=== PATIENT | female | born 1985 | race Caucasian/White ===

== ENCOUNTER 2019-02-26 17:34 | Inpatient (IN) ==
[2019-02-26 16:25] LABS: Amphetamine Screen,Urine Negative ng/mL (Cutoff=1000); Barbiturate Screen,Urine Negative ng/mL (Cutoff=200); Benzodiazepines Screen,Urine Negative ng/mL (Cutoff=200); Cannabinoid Screen,Urine Negative ng/mL (Cutoff = 50); Cocaine Screen,Urine Negative ng/mL (Cutoff= 300); Opiate Screen,Urine Negative ng/mL (Cutoff=300); Phencyclidine Screen,Urine Negative ng/mL (Cutoff=25)
--- NOTE | 2019-02-26 16:52 | OB/GYN History & Physical ---
Date of Encounter: 02/26/19 Time of Encounter: 16:43 Assessment and Plan (1) 38 weeks gestation of Current visit: Yes Status: Acute Admit for repeat Dr Duran to assume care for (2) Oligohydramnios antepartum Current visit: Yes Status: Acute Admit for repeat Qualifiers: Fetus number: single or unspecified fetus Qualified Code(s): O41.00X0 - Oligohydramnios, unspecified trimester, not applicable or unspecified (3) Positive urine drug screen Current visit: Yes Status: Acute UDS positive for marijuana at the beginning of UDS positive for buprenorphine today; PUBLIC OPINION SURVEY TAKER called to discuss with patient History of Present Illness Chief complaint: Decreased movement HPI: Ms. Yoon is a 34 year old at 38 weeks and 0 days that presents to triage with c/o decreased movement x 24 hours. She states baby is moving, but not as active as normal. She states she also feels wet, but is not soaking through her underwear. She had an ultrasound on 02/24/19 which showed an JAYDE of 4.85cm. Patient states she last ate at 1130 this morning. She denies any headaches, vision changes, epigastric pain, and leaking of fluid. This has been complicated by obesity and GDM controlled with metformin. She has been seen by Elida Cee CNM and Dr Ma for her care. Labs: GBS Neg HIV nonreactive Hep B nonreactive T Pal Negative Varicella Positive Rubella Positive Blood type A+ First trimester urine drug screen - marijuana Past Med Surg Social Fam HX - Past Medical History Medical history: no medical history Additional medical history: D&C-2 Psychiatric history: no psych history - Past Surgical History Surgical History: appendectomy, , cholecystectomy Additional surgical history: Molar . Cholecystectomy 2010 - Social History Smoking Status: Current every day smoker Packs per day: 1/2 Smokeless Tobacco Status: No Alcohol use: none Drug use: marijuana - Family History Mother Living Status: Still Living Hx Family Cardiac Disorders: Yes (has PVC's) Hx Family Endocrine Disorder: Yes (Type DM Type 2) Obstetrical History - Pregnancies : 4 Para: 1 Term: 1 : 0 Ab's: 2 Livin Medications and Allergies Ondansetron ODT [Zofran ODT] 4 mg SL Q6HR 02/26/19 [History] metFORMIN 1,000 mg PO DAILY 02/26/19 [History] Allergy/AdvReac Type Severity Reaction Status Date / Time No Known Allergies Allergy Verified 08/16/18 10:45 Review of System OB All systems PM: reviewed and no additional remarkable complaints except as stated Exam - Constitutional Constitutional: well developed, well nourished, no acute distress, obese - HEENT HEENT: Normocephaly, Mucus Membranes Moist - Neck Neck exam: full ROM - Lungs Respiratory exam: CTAB - Cardiovascular Cardiovascular exam: RRR, +S1, +S2 - Abdomen Abdomen: Present: bowel sounds normal, gravid, non tender - Extremities Extremities exam: normal capillary refill, normal inspection, radial pulses palpable and symmetrical Deep Tendon Reflex Grade: 2+ Normal - Uterus Uterus exam: Present: normal size - Adnexa Adnexa: bilateral: normal Results Abnormal lab results Ur Buprenorphine Scrn Positive ng/mL (Cutoff=5) H 02/26/19 15:55 All other labs normal. - VTE Reasons for not Prescribing Prophylaxis: Treatment not Indicated - Low risk for VTE
--- NOTE | 2019-02-26 17:17 | Event Note ---
Date of Encounter: 02/26/19 Time of Encounter: 17:15 After EVELINE saw patient, she would like to repeat the drug screen. Dr Duran approves if straight cath collected. Offered to patient and reordered. Patient understands that despite what urine comes back, the cord will be tested based upon her history of marijuana abuse.
[~2019-02-26 17:34] MED LIST: CeFAZolin Premix DUPLEX 2,000 MG/50 ML BAG IVPB ONE; Famotidine 20 MG/2 ML VIAL IVP ONE; Metoclopramide 10 MG/2 ML VIAL IVP ONE; Oxytocin 20 units/ LR 1000 mL 20 UNIT/1,000 ML BAG IVC ONE; Oxytocin 20 units/ LR 1000 mL 20 UNIT/1,000 ML BAG IVC SCH; Ringers Solution, Lactated 1,000 ML IVC SCH
[2019-02-26 18:11] LABS: Basophils % 0.2 %; Eosinophils # 0.1 K/mcL (0.0-0.6); Eosinophils % 0.8 %; Hematocrit 35.7 % (35.3-44.9); Hemoglobin 11.5 g/dL (11.5-15.4); Immature Granulocytes % 0.5 % (0-4); Lymphocytes # 2.9 K/mcL (0.6-4.6); Lymphocytes % 22.1 %; Mean Corpuscular HGB Conc 32.2 g/dL (31.6-35.5); Mean Corpuscular Hemoglobin 28.8 pg (28.0-33.3); Mean Corpuscular Volume 89.3 fL (83.0-100.0); Monocytes # 0.7 K/mcL (0.0-1.3); Monocytes % 5.3 %; Neutrophils # 9.2 K/mcL (1.6-8.9); Platelet Count 346 K/mcL (140-400); Red Cell Distribution Width 14.2 % (11.5-14.5); Segmented Neutrophils % 71.1 %; White Blood Count 12.9 K/mcL (4.3-11.1)
--- NOTE | 2019-02-26 18:25 | Anesthesia Evaluation PreOp ---
Date of Encounter: 02/26/19 Time of Encounter: 18:03 - Past History Planned Operation: 38wks repeat , oligohydraminos, dec Cardiac History: Denies any Significant Hx Pulmonary History: Smoker Other Medical History: Other (oligohydraminos, decreased movement, positive urine drug screen for buprenorphine & Marijuana, [place] BMI=44) Anesthesia History: No Prior Anesthetic Complications, Past Anesthesia Alcohol Use: none Drug use: marijuana Medications and Allergies Ondansetron ODT [Zofran ODT] 4 mg SL Q6HR 02/26/19 [History] metFORMIN 1,000 mg PO DAILY 02/26/19 [History] Allergy/AdvReac Type Severity Reaction Status Date / Time No Known Allergies Allergy Verified 08/16/18 10:45 Anesthesia Results - Labs 02/26/19 17:57 Anesthesia Exam - HEENT Pupil (Motor): Pupils equal Mallampati: II Teeth: Normal Oral Opening: Greater than 3 - EXECUTIVE CYBER LEADER LOC: Oriented EXECUTIVE CYBER LEADER Motor: Normal RUE, Normal LUE, Normal RLE, Normal LLE, Normal Face EXECUTIVE CYBER LEADER Sensory: Normal: RUE, LUE, RLE, LLE, Face - Cardiac Rhythm: Regular Murmur: None - Pulmonary Breath Sounds: bilateral Clear Respiratory Effort: Symmetrical Anesthesia Assess/Plan ASA Score: 3 Level of consciousness: Cooperative, Oriented Anesthetic Plan: General, Spinal, Epidural Monitoring Plan: Standard Monitors Recovery Plan: PACU
[2019-02-26] MEDS ORDERED: *HR* Phenylephrine 10 MG/ML VIAL ONE (18:33)
[2019-02-26] MEDS ORDERED: *HR* Morphine Sulfate/PF 10 MG/10 ML AMPUL ONE (18:33)
[2019-02-26] MEDS ORDERED: EPHEDrine 50 MG/ML VIAL ONE (18:33)
[2019-02-26] MEDS ORDERED: *HR* FentaNYL (PF) 100 MCG/2 ML VIAL ONE (18:34)
[2019-02-26] MEDS ORDERED: Bupivacaine/PF 0.75% in Dex 2 ML AMPUL INFILT ONE (18:36)
[2019-02-26] MEDS ORDERED: Ringers Solution, Lactated 1,000 ML ONE (18:41)
[2019-02-26] MEDS ORDERED: *HR* Succinylcholine 200 MG/10 ML VIAL IVP ONE (19:57)
[2019-02-26] MEDS ORDERED: Propofol 500 MG/50 ML INFUS..BTL ONE (19:57)
[2019-02-26] MEDS ORDERED: Ondansetron 4 MG/2 ML VIAL ONE (22:46)
[2019-02-26] MEDS ORDERED: Ketorolac 30 MG/ML VIAL ONE (22:46)
[2019-02-26] MEDS ORDERED: Dexamethasone 4 MG/ML VIAL ONE (22:46)
--- NOTE | 2019-02-26 23:14 | Anesthesia Procedures ---
Date of Encounter: 02/26/19 Time of Encounter: 22:30 Procedures: Anesthesia - Epidural/Spinal Patient ID/Chart reviewed: Yes Patient examined: Yes OB Eval: Gestational age: 38 OB Eval: : 2 OB Eval: Hx Para: 1 OB Eval: Dilated at (cm): 4 OB Eval: Contractions: Non-stressed pattern Consent Obtained: Yes Site Prep: Aseptic Technique, Sterile prep and drape, Povidone-Iodine 1% Patient position: upright Amount of Local Anesthetic used: 3 Blood: No CSF: No Paresthesia: Yes Procedure: tolerated procedure well L4-5 1st attempt. bupivicaine 0.75% 1.8ml duramorph 0.3mg fentanyl 10ug
--- NOTE | 2019-02-26 23:17 | OB/GYN Procedure Note ---
Section - Date of procedure: 02/26/19 Preop diagnosis: desires repeat , other (oligohydramnios with decreased movement) Post-op diagnosis: same Procedure: repeat low transverse Surgeon: Kal Phillip Blood Loss: 500 Was there an surgical assistant present: Yes Explosive Expert: Kaya Cm Anesthesiologist: Neto Jones Adhesive Bandage Machine Operator: Ximena Locke Anesthesia Type: Spinal section complications: none Disposition: L&D Recovery Room Specimens: Placenta - (s) Infant A Delivery Date: 02/26/19 Delivery Time: 22:46 Presentation: vertex Position: OA Route of delivery: other Gender: Male Viability: Viable Pounds: 7 Ounces: 15 Gram Weight: 3.605 kg at 1 minute: 9 at 5 minutes: 9 Placenta: partial extraction Cord: 3 umbilical vessels - Narrative Narrative: Patient was taken to the operating room with IV in place. She presented complaining of significantly decreased movement. Patient was known to have an JAYDE of 4.9 cm. Because of this patient was On the monitor and we decided to proceed with a repeat section. Informed consent was obtained. This patient does wish to proceed. Procedure she was taken to the operating room with IV in place. She was then given spinal anesthesia. She was then prepped and draped in the usual sterile fashion. Once adequate analgesia was achieved a Pfannenstiel incision was made. It was carried sharply through the subtenons fatty tissue, until the fascial layers reached. The fascia was then nicked in the midline. It was then dissected bilaterally with scissors. It was dissected vertically without difficulty. Rectus abdominis musculature is and in the midline and the peritoneum was sharply entered. A bladder blade was placed at the inferior margin of the incision. The bladder flap was then developed difficulty. The bladder blade was placed over the bladder flap, and a low transverse incision was then made in the lower uterine segment. Fluid was noted be clear and sparse. Th 's head was then delivered without difficulty. The rest the infant was then delivered easily. cried immediately upon delivery. The cord was clamped cut. The was in passed to nursing in attendance. The placenta without any difficulty. Uterine lavage was performed. The incision was then closed with 0 Vicryl suture in a running locking fashion. The pelvic cavity was rinsed thoroughly with sterile water 2. The fascia was then closed with 0 Vicryl suture in a running nonlocking fashion. Suprafascial region was rinsed thoroughly with sterile water 2 all bleeders cauterized. The skin was then closed with allan. A beto dressing was placed. Estimated blood loss 500 mL. Patient delivered a male infant weight 7 lbs. 15 oz. with Apgars of 9 at 1 minute and 9 at 5 minutes.
[2019-02-27] MEDS ORDERED: Sennosides 8.6 MG TABLET PO PRN (02:16)
[2019-02-27] MEDS ORDERED: *HR* OxyCODONE/APAP 5/325 TABLET PO PRN (02:16)
[2019-02-27] MEDS ORDERED: Metoclopramide 10 MG/2 ML VIAL IVP PRN (02:16)
[2019-02-27] MEDS ORDERED: Ondansetron 4 MG/2 ML VIAL IVP PRN (02:16)
[2019-02-27] MEDS ORDERED: Simethicone 80 MG TAB.CHEW PO PRN (02:16)
[2019-02-27] MEDS ORDERED: Oxytocin 20 units/ LR 1000 mL 20 UNIT/1,000 ML BAG IVC SCH (02:16)
[2019-02-27] MEDS: ceFAZolin 2,000 MG in 0.9 % Sodium Chloride 100 ML IVP SCH ×3 (03:23→16:36)
[2019-02-27 06:17] LABS: Basophils % 0.2 %; Eosinophils % 0.1 %; Hematocrit 30.7 % (35.3-44.9); Immature Granulocytes % 0.5 % (0-4); Lymphocytes # 1.9 K/mcL (0.6-4.6); Lymphocytes % 10.6 %; Mean Corpuscular HGB Conc 31.9 g/dL (31.6-35.5); Mean Corpuscular Hemoglobin 28.6 pg (28.0-33.3); Mean Corpuscular Volume 89.5 fL (83.0-100.0); Mean Platelet Volume 10.2 fL (9.4-12.4); Monocytes # 0.4 K/mcL (0.0-1.3); Monocytes % 2.4 %; Neutrophils # 15.3 K/mcL (1.6-8.9); Platelet Count 314 K/mcL (140-400); Red Blood Count 3.43 M/mcL (3.82-4.97); Red Cell Distribution Width 14.1 % (11.5-14.5); Segmented Neutrophils % 86.2 %; White Blood Count 17.7 K/mcL (4.3-11.1)
[2019-02-27] MEDS: Ibuprofen 600 MG TABLET PO PRN ×3 (06:23→19:00)
[2019-02-27 06:25] LABS: Hemoglobin 9.8 g/dL (11.5-15.4)
--- NOTE | 2019-02-27 06:55 | Anesthesia Evaluation Post Op ---
Date of Encounter: 02/27/19 Time of Encounter: 02:00 - Lungs Lungs: Clear Ascult./Percussion - Airway Airway: Non-obstructed - Cardiovascular Regular Rate - Mental Status Mental Status: Alert & Oriented, Answers Appropriately - Pain Pain Scale: 0 - Nausea Vomiting Nausea Vomiting: Not Present - Hydration Hydration: NPO, Valle catheter - Discharge PostOp Status: Transfer Patient to floor
[2019-02-27] MEDS: Prenatal Vit/FA 1 EACH TABLET PO SCH (08:34)
--- NOTE | 2019-02-27 13:15 | OB/GYN Progress Note ---
Date of Encounter: 02/27/19 Time of Encounter: 13:13 - Assessment and Plan (1) Status post repeat low transverse section Current Visit: Yes Status: Acute Continue routine postop/ care anticipate discharge home (2) Breast feeding status of mother Current Visit: Yes Status: Acute support prn Subjective - Subjective Principal diagnosis: Postop/ day 1 Interval history: Patient is post op day 1 repeat c/s for Olig[place]. Patient denies any pain at this time. Patient reports normal lochia. Patient states is breast feeding well. Patient reports: appetite normal, voiding normally, pain well controlled, ambulating normally [place]: doing well, nursing well Objective - Vital Signs Latest vital signs: Vital Signs Temp Pulse Resp BP Pulse Ox 02/27/19 09:00 98.1 F 70 16 104/67 96 02/27/19 08:25 16 02/27/19 05:40 98.4 F 83 16 111/70 96 02/27/19 04:30 98.4 F 80 14 108/69 96 02/27/19 03:15 97.8 F 73 16 111/62 96 02/27/19 02:30 98.3 F 78 16 113/78 96 02/27/19 01:45 98.3 F 68 16 108/70 96 Intake and Output 02/26/19 02/27/19 02/27/19 23:59 07:59 15:59 Intake Total 100 / 200 100 / 200 Output Total 160 / 160 Balance -60 / 40 100 / 40 Intake: IV Fluids 100 / 200 100 / 200 Ancef 2,000 MG In 0.9 % Sodium 100 / 200 100 / 200 Chloride 100 ML @ 200 mls/hr IVP Q8HR [facility] Rx#:[id number] Output: Catheter 160 / 160 - Exam Lungs: bilateral: normal Chest: Normal S1, Normal S2 Extremities: Present: normal Abdomen: Present: normal appearance, soft Incision: Present: normal, dry, intact, dressed (TERI) Uterus: Present: normal, firm Fundal Height: 2 (U/2) - Labs Labs: Laboratory Results - last 24 hr 02/26/19 02/26/19 02/27/19 15:55 17:57 05:35 WBC 12.9 H 17.7 H RBC 4.00 3.43 L Hgb 11.5 9.8 L D Hct 35.7 30.7 L MCV 89.3 89.5 MCH 28.8 28.6 MCHC 32.2 31.9 RDW 14.2 14.1 Plt Count 346 314 MPV 10.0 10.2 Immature Gran % 0.5 0.5 Seg Neutrophils % 71.1 86.2 Lymphocytes % 22.1 10.6 Monocytes % 5.3 2.4 Eosinophils % 0.8 0.1 Basophils % 0.2 0.2 Neutrophils # 9.2 H 15.3 H Lymphocytes # 2.9 1.9 Monocytes # 0.7 0.4 Eosinophils # 0.1 0.0 Basophils # 0.0 0.0 Urine Opiates Screen Negative Ur Buprenorphine Scrn Positive H Ur Barbiturates Screen Negative Ur Phencyclidine Scrn Negative Ur Amphetamines Screen Negative U Benzodiazepines Scrn Negative Urine Cocaine Screen Negative U Marijuana (THC) Screen Negative Ur Drug Screen Interp See Below
[2019-02-28] MEDS: Ibuprofen 600 MG TABLET PO PRN (03:15)
[2019-02-28] MEDS: Prenatal Vit/FA 1 EACH TABLET PO SCH (07:51)
[2019-02-28 08:22] VITALS: BP 125/79
[2019-02-28] MEDS ORDERED: Ondansetron ODT 4 MG TAB.RAPDIS SL STA (09:23)
--- NOTE | 2019-02-28 11:25 | Discharge Summary ---
Date of Encounter: 02/28/19 Time of Encounter: 11:22 - Discharge Diagnosis (1) Breast feeding status of mother Priority: Secondary Status: Acute (2) Status post repeat low transverse section Priority: Primary Status: Acute Comments: Stable, meeting all PP milestones, pain well managed, breast feeding and pumping, desires discharge. - Discharge Medications Prescriptions: New Ferrous Sulfate 325 mg PO DAILY #60 tablet Ibuprofen [Motrin] 600 mg PO Q6HR PRN #60 tablet PRN Reason: Cramping Simethicone [Gas-X] 80 mg PO TID PRN tab.chew PRN Reason: Dyspepsia Discontinued Ondansetron ODT [Zofran ODT] 4 mg SL Q6HR metFORMIN 1,000 mg PO DAILY Home Medications: Ferrous Sulfate 325 mg PO DAILY #60 tablet 02/28/19 [Rx] Ibuprofen [Motrin] 600 mg PO Q6HR PRN #60 tablet 02/28/19 [Rx] Simethicone [Gas-X] 80 mg PO TID PRN tab.chew 02/28/19 [Rx] Allergies/Adverse Reactions: Allergy/AdvReac Type Severity Reaction Status Date / Time No Known Allergies Allergy Verified 08/16/18 10:45 Data Procedures and tests throughout hospitalization: Laboratory Tests 02/26/19 02/26/19 02/27/19 15:55 17:57 05:35 WBC 12.9 H 17.7 H RBC 4.00 3.43 L Hgb 11.5 9.8 L D Hct 35.7 30.7 L MCV 89.3 89.5 MCH 28.8 28.6 MCHC 32.2 31.9 RDW 14.2 14.1 Plt Count 346 314 MPV 10.0 10.2 Immature Gran % 0.5 0.5 Seg Neutrophils % 71.1 86.2 Lymphocytes % 22.1 10.6 Monocytes % 5.3 2.4 Eosinophils % 0.8 0.1 Basophils % 0.2 0.2 Neutrophils # 9.2 H 15.3 H Lymphocytes # 2.9 1.9 Monocytes # 0.7 0.4 Eosinophils # 0.1 0.0 Basophils # 0.0 0.0 Urine Opiates Screen Negative Ur Buprenorphine Scrn Positive H Ur Barbiturates Screen Negative Ur Phencyclidine Scrn Negative Ur Amphetamines Screen Negative U Benzodiazepines Scrn Negative Urine Cocaine Screen Negative U Marijuana (THC) Screen Negative Ur Drug Screen Interp See Below Date of admission: 02/26/19 17:34 Primary care physician: PCP NONE Consults: 02/26/19 17:03 Consult to District Supervisor (W&C) [CONS] Stat Reason For Exam: Reason for SW Consult: buprenorphine positive Discharging clinician: Pauline Starks Anticipated date of discharge: 02/28/19 - Patient Status Disposition: Home, Self-Care Condition: Good Functional capacity at discharge: independent ambulation Overall status at discharge: patient is progressing back to baseline - Discharge Instructions Follow Up With: NONE,PCP [Primary Care Provider] - Kal Duran MD [Partnered Physician] - - Diet and Activity Activity: resume usual activities as tolerated Diet: regular diet Hospital Course Reason for admission: section Delivery: section Episiotomy: none Laceration: none Other procedures: none complications: none Discharge diagnosis: IUP at term delivered baby: male Hospital course: esarean Section - Date of procedure: 02/26/19 Preop diagnosis: desires repeat , other (oligohydramnios with decreased movement) Post-op diagnosis: same Procedure: repeat low transverse Surgeon: Kal Duran Quantitated Blood Loss: 500 Was there an assistant surveyor present: Yes Placement Coordinator: Kaya Cm Anesthesiologist: Neto Jones Bottom Presser: Ximena Locke Anesthesia Type: Spinal section complications: none Disposition: L&D Recovery Room Specimens: Placenta - Infant (s) A Infant Delivery Date: 02/26/19 Infant Delivery Time: 22:46 Presentation: vertex Position: OA Route of delivery: other Gender: Male Viability: Viable Pounds: 7 Ounces: 15 Gram Weight: 3.605 kg at 1 minute: 9 at 5 minutes: 9 Placenta: partial extraction Cord: 3 umbilical vessels Stable in PP and appropriate for discharge Time Attestation: Total time spent providing and/or coordinating discharge services: Time Spent: Less than 30 minutes - VTE Reasons for not Prescribing Prophylaxis: Treatment not Indicated - Low risk for VTE Documentation of Mechanical Device: Intermittent pneumatic compression device Exam - Constitutional Vitals: Temp Pulse Resp BP Pulse Ox 98.1 F 81 20 125/79 99 02/28/19 08:21 02/28/19 08:21 02/28/19 08:21 02/28/19 08:21 02/28/19 08:21 General appearance IM: A&O X 3 - Respiratory Respiratory exam: Present: CTAB - Cardiovascular Cardiovascular exam IM: Present: RRR - GI/Abdominal GI/Abdominal exam IM: soft - Uterine Tone: Firm Uterus Position: At Umbilicus - Extremities Exam Extremities exam IM: Present: normal capillary refill, normal inspection - Neurological Exam Neurological exam: alert, normal gait, oriented X3 - Psychiatric Additional comments: reports good mood
== END 2019-02-28 13:40 | disposition home or self-care (01) | DRG 787 ==
LOC: 1NENULAB → 1NENUOBS 02-27 02:14
PROVIDERS: ADMIT Advanced Practice Midwife; ATTEND Advanced Practice Midwife

== ENCOUNTER → 2021-05-15 19:10 | Observation (INO) | END | disposition home or self-care (01) | LOC: 1NENULAB | PROVIDERS: ADMIT Obstetrics & Gynecology; ATTEND Obstetrics & Gynecology ==

== ENCOUNTER → 2021-06-28 14:40 | Observation (INO) | END | disposition home or self-care (01) | LOC: 1NENULAB | PROVIDERS: ADMIT Registered Nurse; ATTEND Registered Nurse ==

== ENCOUNTER 2021-07-20 05:31 | Inpatient (IN) ==
[2021-07-20] MEDS ORDERED: Metoclopramide 10 MG/2 ML VIAL IVP PRN ×2 (05:43→12:01)
[2021-07-20] MEDS ORDERED: Famotidine 20 MG/2 ML VIAL IVP PRN (05:43)
[2021-07-20] MEDS ORDERED: Azithromycin 500 MG in 0.9 % Sodium Chloride 250 ML IVPB PRN (05:43)
[2021-07-20] MEDS ORDERED: Naloxone 0.4 MG/ML INJ IVP PRN (05:43)
[2021-07-20] MEDS ORDERED: Ringers Solution, Lactated 1,000 ML IVC SCH (05:45)
[2021-07-20] MEDS ORDERED: Ringers Solution, Lactated 1,000 ML ONE (05:47)
[2021-07-20] MEDS ORDERED: Promethazine 6.25 MG in Water for inj. (sterile) 20 ML IVPB PRN (06:31)
[2021-07-20] MEDS ORDERED: Ondansetron 4 MG/2 ML VIAL IVP PRN ×2 (06:31→12:01)
[2021-07-20] MEDS ORDERED: *HR* HYDROmorphone PF 0.5 MG/0.5 ML SYRINGE IVP PRN (06:31)
[2021-07-20 07:13] LABS: Basophils % 0.3 %; Eosinophils % 0.3 %; Hematocrit 36.2 % (35.3-44.9); Hemoglobin 11.4 g/dL (11.5-15.4); Immature Granulocytes % 0.4 % (0-4); Lymphocytes # 2.5 K/mcL (0.6-4.6); Lymphocytes % 21.7 %; Mean Corpuscular HGB Conc 31.5 g/dL (31.6-35.5); Mean Corpuscular Hemoglobin 27.2 pg (28.0-33.3); Mean Corpuscular Volume 86.4 fL (83.0-100.0); Mean Platelet Volume 10.6 fL (9.4-12.4); Monocytes # 0.7 K/mcL (0.0-1.3); Monocytes % 5.8 %; Neutrophils # 8.3 K/mcL (1.6-8.9); Platelet Count 229 K/mcL (140-400); Red Blood Count 4.19 M/mcL (3.82-4.97); Red Cell Distribution Width 14.6 % (11.5-14.5); Segmented Neutrophils % 71.5 %; White Blood Count 11.6 K/mcL (4.3-11.1)
[2021-07-20 07:14] LABS: Influenza A PCR Negative (Negative); Influenza B PCR Negative (Negative); Resp. Syncytial Virus PCR Negative (Negative)
[2021-07-20 07:18] LABS: SARS-CoV-2 by PCR (In House) Negative (Negative)
[2021-07-20] MEDS ORDERED: *HR* Morphine Sulfate/PF 10 MG/10 ML AMPUL ONE (07:24)
[2021-07-20] MEDS ORDERED: *HR* FentaNYL (PF) 100 MCG/2 ML VIAL ONE (07:24)
[2021-07-20] MEDS ORDERED: EPHEDrine 50 MG/ML VIAL ONE (07:25)
[2021-07-20] MEDS ORDERED: Ketorolac 30 MG/ML VIAL ONE (07:25)
[2021-07-20] MEDS ORDERED: Ondansetron 4 MG/2 ML VIAL ONE (07:25)
[2021-07-20] MEDS ORDERED: Acetaminophen IV 1,000 MG/100 ML BAG IVPB ONE (07:25)
[2021-07-20] MEDS ORDERED: Oxytocin 20 units/ LR 1000 mL 20 UNIT/1,000 ML BAG IVC ONE ×2 (08:00→09:02)
[2021-07-20 08:40] LABS: Amphetamine Screen,Urine Negative ng/mL (Cutoff=1000); Barbiturate Screen,Urine Negative ng/mL (Cutoff=200); Benzodiazepines Screen,Urine Negative ng/mL (Cutoff=200); Cannabinoid Screen,Urine Negative ng/mL (Cutoff = 50); Cocaine Screen,Urine Negative ng/mL (Cutoff= 300); Opiate Screen,Urine Negative ng/mL (Cutoff=300); Phencyclidine Screen,Urine Negative ng/mL (Cutoff=25)
[2021-07-20] MEDS ORDERED: Rho Immune Globulin 1,500 UNIT SYRINGE IM ONE (12:01)
[2021-07-20] MEDS ORDERED: Oxytocin 20 units/ LR 1000 mL 20 UNIT/1,000 ML BAG IVC SCH (12:01)
[2021-07-20] MEDS: Ibuprofen 600 MG TABLET PO SCH ×2 (12:24→18:35)
[2021-07-20] MEDS: metroNIDAZOLE 500 MG TABLET PO SCH ×2 (15:29→20:14)
[2021-07-20] MEDS: ceFAZolin 2,000 MG in Water for inj. (sterile) 10 ML IVP SCH (15:30)
[2021-07-20] MEDS: Acetaminophen 325 MG TABLET PO SCH ×2 (15:30→20:14)
[2021-07-21] MEDS: Ibuprofen 600 MG TABLET PO SCH ×2 (00:31→17:59)
[2021-07-21] MEDS: ceFAZolin 2,000 MG in Water for inj. (sterile) 10 ML IVP SCH ×2 (00:32→07:59)
[2021-07-21 04:19] LABS: Basophils % 0.4 %; Eosinophils # 0.1 K/mcL (0.0-0.6); Eosinophils % 0.8 %; Hematocrit 29.5 % (35.3-44.9); Hemoglobin 9.2 g/dL (11.5-15.4); Immature Granulocytes % 0.5 % (0-4); Lymphocytes % 19.7 %; Mean Corpuscular HGB Conc 31.2 g/dL (31.6-35.5); Mean Corpuscular Hemoglobin 27.3 pg (28.0-33.3); Mean Corpuscular Volume 87.5 fL (83.0-100.0); Mean Platelet Volume 10.1 fL (9.4-12.4); Monocytes # 0.5 K/mcL (0.0-1.3); Monocytes % 5.2 %; Neutrophils # 7.6 K/mcL (1.6-8.9); Platelet Count 195 K/mcL (140-400); Red Blood Count 3.37 M/mcL (3.82-4.97); Red Cell Distribution Width 14.4 % (11.5-14.5); Segmented Neutrophils % 73.4 %; White Blood Count 10.3 K/mcL (4.3-11.1)
[2021-07-21] MEDS: Prenatal Vit/FA 1 EACH TABLET PO SCH (07:59)
[2021-07-21] MEDS: metroNIDAZOLE 500 MG TABLET PO SCH ×3 (07:59→21:58)
[2021-07-21] MEDS: *HR* OxyCODONE Immed Rel 5 MG TABLET PO PRN ×2 (08:34→18:00)
[2021-07-21] MEDS: Acetaminophen 325 MG TABLET PO SCH (18:00)
[2021-07-21 21:08] VITALS: O2SAT 99
[2021-07-21] MEDS: Simethicone 80 MG TAB.CHEW PO PRN (21:59)
[2021-07-22] MEDS: Ibuprofen 600 MG TABLET PO SCH ×2 (01:18→07:40)
[2021-07-22] MEDS: Acetaminophen 325 MG TABLET PO SCH ×2 (01:18→07:41)
[2021-07-22 07:21] VITALS: BP 122/80; PULSE 75; TEMP 98
[2021-07-22] MEDS: Prenatal Vit/FA 1 EACH TABLET PO SCH (07:41)
[2021-07-22] MEDS: Simethicone 80 MG TAB.CHEW PO PRN (07:41)
== END 2021-07-22 11:08 | disposition home or self-care (01) | DRG 539 ==
LOC: 1NENULAB 05:31 → 1NENUOBS 11:15
PROVIDERS: ADMIT Obstetrics & Gynecology; ATTEND Obstetrics & Gynecology